=== PATIENT | male | born 1970 | race Caucasian/White ===

== ENCOUNTER 2019-09-02 09:22 | Emergency (ER) | payer BC, SELFPAY ==
--- NOTE | ~2019-09-02 | XR_ITS ---
XR abdomen/kub 1V DATE: 09/02/2019 11:41 INDICATION: Right flank pain, distal right ureteral calculus TECHNIQUE: AP projection, 2 views COMPARISON: 09/02/[address] abdomen pelvis FINDINGS: A very faintly calcified density is noted overlying the right pelvis, corresponding to the approximate position of the distal right ureteral calculus noted on the current CT abdomen pelvis exa mination. The psoas shadows are intact. No visceromegaly is evident. The bowel gas pattern is unremarkable, wit hout evidence of obstruction. Mildly prominent amount of fecal material within the colon. IMPRESSION: Faintly calcified small distal right ureteral catheter calculus Reviewed, dictated and finalized at [facility] Reviewed, dictated and finalized at [facility].
--- NOTE | ~2019-09-02 | CT_ITS ---
EXAMINATION: CT abdomen pelvis wo con DATE: 09/02/2019 10:40 INDICATION: Right flank pain. Nausea, vomiting. History kidney stones. TECHNIQUE: Computed tomography (CT) of the abdomen and pelvis was performed without intravenous contr ast. Automated exposure control and iterative reconstruction technique were employed. Exam dose: 183 1.19 mGy-cm total exam DLP. COMPARISON: None. FINDINGS: The lung bases are clear of infiltrate or consolidation. Heart size is within normal range. Coronary artery calcification. No pericardial or pleural effusion. Mild bilateral gynecomastia. At least one small stone is suggested in the dependent aspect of the gallbladder. No gallbladder wall thickening or pericholecystic fluid or inflammation is evident. No hepatic, splenic, pancreatic, adr enal or renal space-occupying mass lesion is evident on this limited noncontrast examination. There is right-sided perinephric stranding and moderate right hydroureteronephrosis and pyelosinus ex travasation secondary to a distal right ureteral approximately 3 mm calculus. The urinary bladder is unremarkable. No other urinary tract calculus or any left hydroureteronephrosi s is evident. Normal caliber of the abdominal aorta. No intraperitoneal or retroperitoneal or pelvic mass lesion or adenopathy or ascites. There are small bilateral fat-containing inguinal hernias. The urinary bladder is relatively evacuated. The prostate gland and seminal vesicles are unremarkable . There are numerous diverticula scattered throughout the colon; no CT evidence of diverticulitis. No b owel obstruction is evident. Normal appendix. No pneumoperitoneum or pneumatosis. Prominent degenerative disc disease at L5-S1. No suspicious osteolytic or osteoblastic lesions are noted. IMPRESSION: 3 mm distal right ureteral calculus with mild right hydroureteronephrosis and right michelle nephric stranding Diverticulosis of left and right colon; no CT evidence of diverticulitis Reviewed, dictated and finalized at [facility] Reviewed, dictated and finalized at [facility]. IMPRESSION: 3 mm distal right ureteral calculus with mild right hydroureterone phrosis and right perinephric stranding Diverticulosis of left and right colon; no CT evidence of diverticulitis
[2019-09-02 09:28] VITALS: BP 169/95; PULSE 89; RESP 20; TEMP 37; O2SAT 100
[2019-09-02] MEDS: ONDANSETRON INJ 4 MG/2 ML VIAL IV PUSH ×2 (09:48→10:31)
[2019-09-02 10:03] LABS: Basophils Percent Auto 0.3 % (0.2-1.2); Eosinophils Absolute Auto 0.2 K/mm3 (0-0.3); Eosinophils Percent Auto 3.4 % (0-4.4); Hematocrit 46.1 % (42.0-52.0); Hemoglobin 15.2 g/dL (14.0-18.0); Immature Granulocyte Absolute 0.02 K/mm3 (0.00-0.031); Immature Granulocyte Percent A 0.3 % (0-0.5); Lymphocytes Absolute Auto 1.77 K/mm3 (0.9-3.2); Lymphocytes Percent Auto 25.4 % (18.3-44.2); Mean Corpuscular Hemoglobin 29.7 pg (26-34); Mean Corpuscular Volume 90.2 fl (80-100); Mean Platelet Volume 9.8 fl (7.4-10.4); Monocytes Absolute Auto 0.5 K/mm3 (0.1-0.6); Monocytes Percent Auto 6.6 % (2.6-8.5); Neutrophils Absolute Auto 4.5 K/mm3 (1.3-6.7); Platelet Count Result 213 k/mm3 (150-375); Red Blood Count 5.11 M/mm3 (4.6-6.20); Red Cell Distribution Width 12.6 % (11.5-14.5)
--- NOTE | 2019-09-02 10:10 | PC.NURSE ---
Pt given urinal on arrival, states still unable to provide u/a. States there is no way. Pt requesting more time. Declined straight cath at this time.
[2019-09-02 10:15] LABS: Alanine Aminotransferase 25 U/L (4-50); Alkaline Phosphatase 80 U/L (38-126); Aspartate Amino Transferase 25 U/L (17-59); Bilirubin,Total 0.4 mg/dL (0.2-1.3); Blood Urea Nitrogen 19 mg/dL (9-20); Calcium 8.6 mg/dL (8.4-10.2); Carbon Dioxide 27 mmol/L (22-30); Chloride 104 mmol/L (98-107); Estimated CRCL calculation 112 ml/min; Estimated Glomerular Filt Rate > 60; Glucose 153 mg/dL (75-110); Lipase 80 U/L (23-300); Potassium 4.3 mmol/L (3.4-5.0); Sodium 137 mmol/L (137-145)
--- NOTE | 2019-09-02 10:25 | ED.ABDPAIN ---
HPI - Abdominal Pain General Chief Complaint: Abdominal Pain Stated Complaint: ABD Pain Time Seen by Provider: 09/02/19 09:59 Source: patient Mode of arrival: ambulatory Limitations: no limitations History of Present Illness HPI narrative: Patient is a 49-year-old male who presents to the emergency department with complaint of right flank pain, nausea, and vomiting. Patient locates the pain predominantly in the right lower abdomen. He reports radiation of the pain into the right testicle. He describes the pain as sharp. He had sudden onset approximately half an hour before arriving to the emergency department. He rates the pain as severe. Patient had sweating as well. Patient denies history of kidney stones or any other past episodes like this. MD elicited complaint: flank pain Pertinent past history: none Onset (ago): minute(s) Location: RLQ Quality: sharp Radiation: other (right testicle) Associated symptoms: nausea and vomiting Related Data Allergies Allergy/AdvReac Type Severity Reaction Status Date / Time No Known Allergies Allergy Verified 09/02/19 09:36 Review of Systems Review of Systems: All systems reviewed & are unremarkable except as noted in HPI and below Constitutional: Constitutional: Reports excessive sweating Gastrointestinal: Gastrointestinal: Reports abdominal pain, Reports nausea and Reports vomiting Genitourinary: Genitourinary: Denies hematuria, Denies dysuria and Denies urinary frequency Musculoskeletal: Musculoskeletal: Reports back pain PMFSH Past Medical History Medical History (Updated 09/02/19 @ 14:56 by Naomi Daniel MD) No significant past medical history Surgical History Surgical History (Updated 09/02/19 @ 10:28 by Naomi Daniel MD) No significant past surgical history Social History Social History (Updated 09/02/19 @ 10:28 by Naomi Daniel MD) Smoking status: Never smoker Gender identity (if verbalized by the patient): Male Exam Const: General: cooperative, alert, uncomfortable and other (Dry heaves during exam) Nutritional Appearance: obese morbidly obese Orientation/consciousness: patient oriented x3 Limitations: no limitations HENMT: Mouth: Yes lip normal and Yes moist mucous membranes Resp: Effort & Inspection: normal respiratory effort Auscultation: clear to auscultation bilaterally Cardio: Rate: regular rate Rhythm: regular rhythm GI: GI Palp: Yes Soft to palpation, Yes Tenderness to palpation present (GI) (Diffuse right lower abdomen and flank), No Guarding due to palpation present (GI) and No Rebound tenderness present Auscultation: normal bowel sounds : General: Yes CVA tenderness on the right Skin: General skin exam: normal color and no rashes or lesions noted Neuro: General: patient oriented x3 Cognition (Neuro): normal cognition Speech: normal speech Extrem: General: normal to inspection, full ROM and no clubbing, cyanosis or edema Psych: Mental Status: mental status grossly normal Affect: normal affect Attitude: cooperative Course Course Emergency Course: Patient given Toradol and subsequently 1 dose of fentanyl for pain secondary to findings of a right ureteral stone. Stone is very distal and high likelihood it will pass given its small size. Patient feeling much better after medicines and is appropriate for outpatient management. Will prescribe pain medications and Flomax and refer to on-call urology. Consultations Consultation #1: Dr. Rodriguez advised of patient and can be seen in follow-up. Should be notified if pain does not improve and can address different management plan if needed Date: 09/02/19 Time: 13:06 Vital Signs Vital signs: Vital Signs Temperature 98.6 F 09/02/19 09:28 Pulse Rate 89 09/02/19 09:28 Respiratory Rate 20 09/02/19 09:28 Blood Pressure 169/95 H 09/02/19 09:28 Pulse Oximetry 100 09/02/19 09:28 Temperature 98.6 F 09/02/19 09:28 Pulse Rate 45 L 09/02/19
[2019-09-02] MEDS: KETOROLAC 30 MG/ML VIAL (*BKC) IV PUSH (10:31)
[2019-09-02] MEDS: LACTATED RINGERS 1,000 ML 999 ML IV CONT (10:31)
[2019-09-02 11:05] VITALS: BP 182/101; PULSE 45; RESP 16; O2SAT 100
[2019-09-02 11:30] VITALS: BP 179/98; PULSE 71; RESP 20; O2SAT 98
[2019-09-02 12:59] LABS: Add Urine Microscopic? YES; Appearance Urine Cloudy (Clear); Bacteria Urine Trace /hpf; Bilirubin Urine Negative (Negative); Blood Urine Negative (Negative); Color Urine Yellow (Yellow); Glucose Urine UA Negative (Negative); Ketones Urine Negative (Negative); Leukocyte Esterase Ur Negative LEU/UL (Negative); Mucus Urine Few /lpf; Nitrate Urine Negative (Negative); Protein Urine Negative (Negative); RBC Urine 0-2 /hpf (0-2); Specific Grav Ur 1.028 (1.001-1.035); Squamous Epithelial Cell Urine Rare /hpf (Few); Urobilinogen Urine Negative mg/dL (<2.0)
[2019-09-02 14:59] VITALS: BP 171/105; PULSE 62; RESP 20; O2SAT 99
[2019-09-02 15:19] VITALS: BP 154/98; PULSE 78; RESP 16; O2SAT 100
== END 2019-09-02 15:19 | disposition home or self-care (01) ==
PROVIDERS: Emergency Provider Emergency Medicine
DX: N13.2 Hydronephrosis with renal and ureteral calculous obstruction (principal)
CPT/HCPCS: 36415; 74018; 74176; 80053; 81001; 83690; 85025; 96361; 96374; 96375; 96376; 99284; A9270; J1885; J2405; J3010; J7120